=== PATIENT | female | born 1955 | race Caucasian/White ===

== ENCOUNTER 2016-11-15 16:52 | Inpatient (IN) | payer OTHER, MEDICAID ==
[~2016-11-15] VITALS: Ht 162.6 cm; Wt 45.9 kg
[2016-11-15 18:40] VITALS: RESP 26
--- NOTE | 2016-11-15 18:50 | PCM.HPMED ---
Subjective Date of Service November 15, 2016 Primary Provider: Admitting Physician: Paul Lares MD Primary Care Physician: Nickolas Chacon MD Attending Physician: Paul Lares MD Admit Status: Direct Admit, Admit to [facility] Team, Critical Care Chief Complaint: Shortness of breath, acute respiratory failure hypercarbic and hypoxic. History of Present Illness: This is a 60-year-old female who is pale for approximate 2 weeks. She seen her doctor at times and had some antibiotics and oral steroids. She has an extensive pack year history of smoking and COPD with generalized cachexia. She does not use home oxygen. She presented to the [facility] emergency department with dyspnea and was found to have a PCO2 over 100 with a pH of 7.1. She was started on BiPAP. She had modest improvement of her pH after his second gas. Request is made for transfer and she was transported without incident. She upon arrival was somewhat confused but appears to be relatively comfortable and is not in extremis. She has had a dry cough, no fevers or chills. Pulmonary infiltrates were noted and antibiotics started at [facility]. She also did have nebulizers as well as a negative sepsis screening in a glass control coma scale of 13. She does have known allergies to Dilaudid IV contrast Neurontin and penicillin. She continues to smoke only intermittently at this point. She has never been intubated per her report today. She does know where she is. She denies any chest pain or abdominal pain. Review of Systems: No headache, rhinorrhea or sore throat. No nausea or vomiting. She does have some anorexia. No pedal edema or new skin rash or lesions. Also reviewed and otherwise negative except as noted in history of present illness. Home Medications Reported medications include albuterol when necessary cyclobenzaprine when necessary Qvar twice a day, 80 g. Tramadol 50 mg when necessary duo nebs when necessary oxygen 1.5 L at night only ProAir HFA when necessary recent course of prednisone 40 daily gabapentin 300 mg 3 times a day note that this is in contrast to stated allergies alendronate 70 mg daily Motrin when necessary and Combivent 1 puff 4 times a day of these medications have been verified and records from [place] have different reports of these medications. PMH 1. COPD 2. Probable nocturnal hypoxia on home oxygen at night 3. Chronic pain syndrome 4. Insomnia 5. Remote hyperthyroidism 6. Herpes zoster 7. Possible history of colon cancer, unverified. Surgical History Appendectomy Back surgery Hysterectomy Family History Negative for COPD Social History Occupation: none Hx Alcohol Use: No Hx Substance Use: No Hx Tobacco Use: Yes Smoking Status: Current Every Day Smoker Living Arrangement: with Family Exam Exam Oriented 3. She is somewhat dyspneic with talking, has BiPAP on. She is extremely cachectic. She does seem slightly confused. Fluent speech. Normal skull. Facial wasting. Normal nose and ears. Anicteric sclera, symmetric pupils Oropharynx is unremarkable, no facial droop. Neck is supple, normal thyroid. No adenopathy. Lungs notable for 1 over 4 breath sounds with prolonged expiratory phase and wheezing. She has increased work of breathing but is recently comfortable on BiPAP. Heart is regular without murmur gallop or rub. Distant sounds. Abdomen soft, nondistended or tender. Flat Extremities are free of pedal edema. Good radial and pedal pulses. Skin is free of rash, lesions. No petechiae or ecchymosis. Joints are grossly normal. Cranial nerves are grossly normal. Motor strength is normal in all extremities. Normal muscular tone. Patient is extremely cachectic. Lab and Diagnostics Labs The urine from [facility] is negative White count 9.1 hematocrit 41, platelets 209. BNP 205. Glucose 113. Normal electrolytes. Creatinine is 0.7. Initial blood gas pH is 7.10 PCO2 140 PO2 136 EKG sinus rhythm without acute changes noted. Assessment & Plan 1. Acute hypercarbic and hypoxic respiratory failure, POA. Plan his BiPAP and treatment of COPD exacerbation and pneumonia. Repeat blood gas in approximately 60 minutes. If no improvement consider alternatives. I believe at this point she will build be treated successfully with BiPAP. 2. Community-acquired pneumonia, POA. Ceftriaxone and azithromycin. 3. COPD exacerbation, POA. IV methylprednisolone and bronchodilators. The patient is slightly confused from her hypercarbia at the time of transfer. She appears to be for resuscitation and intubation with mechanical ventilation if required. At this point we will attempt a trial of noninvasive positive pressure ventilation. We will follow her closely. Inpatient status with a 2 night length of stay anticipated. Pain Evaluation: Adequate Pain Control Resuscitation Status: CPR: Attempt Resuscitation Time spent 45 minutes of critical care time Paul Lares MD November 15, 2016 18:50
[2016-11-15] MEDS ORDERED: Alum-Mag Hydrox-Simeth 30 mL Suspension PO PRN (18:55)
[2016-11-15] MEDS ORDERED: Senna-Docusate 8.6-50 mg Tablet PO PRN (18:55)
[2016-11-15] MEDS ORDERED: Albuterol 1.25 mg/3 mL Inhalation Solution NEB PRN (18:55)
[2016-11-15] MEDS ORDERED: MethylprednisoLONE Sodium Succinate 40 mg/mL Inj IVPUSH SCH (18:55)
[2016-11-15] MEDS ORDERED: Polyethylene Glycol (PEG) 17 Gm Powder PO PRN (18:55)
[2016-11-15 19:00] VITALS: BP 117/80; PULSE 79; RESP 14; O2SAT 97
[2016-11-15] MEDS ORDERED: Azithromycin Inj 500 MG in Dextrose 5% w/Vial Mate 250 ML IV SCH (19:52)
[2016-11-15 20:05] LABS: TROPONIN T < 0.010 ug/L (0.0-0.011)
--- NOTE | 2016-11-15 20:11 | ABG ---
DateTimeAnalyzed 20:07:00 -_ pH ____7.238 - 7.350 7.450 pCO2 ___93.5__ -mmHg 35.0 45.0 pO2 ___94.3__ -mmHg 69.0 116 HCO3- ___38.5__ -mmol/L 22.0 26.0 ABE ____8.2__ -mmol/L -2.0 2.0 tHb ___11.9__ -g/dL O2Hb ___93.7__ -% COHb ____2.7__ -% MetHb ____1.3__ -% sO2 ___97.6__ -% FIO2 ___40.0__ -% Pressure_Support ___14.0__ -cmH2O CPAP ____8.0__ -cmH2O Set_RR ___20.0__ -b/min Drawn By blf - Date/Time Notified____ 20:11:00 -_ Spontaneous_RR ___24.0__ -b/min Oxygen Device 1 ____BIPAP - Notified By blf - Notified Whom Khushboo Sabattus RN -___ B 753 -mmHg tO2 ___15.8__ -Vol% Paul test N/A -
[2016-11-15] MEDS: 0.9% Sodium Chloride 1,000 ML IV SCH (20:12)
[2016-11-15 20:20] VITALS: BP 122/78; RESP 24; O2SAT 97
[2016-11-15] MEDS: Albuterol-Ipratropium 3 mL Inhalation Solution NEB SCH ×2 (20:21→23:54)
[2016-11-15] MEDS: MethylprednisoLONE Sodium Succinate 40 mg/mL Inj IVPUSH SCH (21:28)
[2016-11-15] MEDS: cefTRIAXone Inj 1,000 MG in Dextrose 5% Minibag Plus 50 ML IV SCH (21:35)
[2016-11-15 23:37] VITALS: BP 109/77; RESP 14; O2SAT 94
[2016-11-15 23:56] VITALS: BP 115/74; RESP 18; O2SAT 93
[2016-11-16] VITALS (13 sets, daily range): BP systolic 115–155; BP diastolic 66–102; PULSE 75–98; RESP 14–23; O2SAT 92–99
--- NOTE | 2016-11-16 01:05 | NUR ---
Admit Arrive from [facility] ED. A/O. Forgetful and restless. c/o CAMPBELL, generalize aching, and feet and hands burning. Denies dyspnea at rest. Mild exertional dyspnea. Denies N/V. c/o hunger and thirst. Admit completed w/ pt w/ incongruent answers. Tele SR. Stable BP. Bipap at 45%, sats 88-99%. RA sat 78%. Encouraging pt to keep bipap on.
[2016-11-16] MEDS ORDERED: ALBU8.5H2 INHALATION ×2 (02:25→09:40)
[2016-11-16] MEDS ORDERED: CYCL10TA9 PO (02:28)
[2016-11-16] MEDS ORDERED: BECL8.7A6 INHALATION (02:28)
[2016-11-16 02:44] LABS: BASOPHILS % (AUTO) 0 % (0-3); EOSINOPHILS % (AUTO) 0 % (0-5); MONOCYTES % (AUTO) 1.5 % (4-12); Mean Corpuscular Hemoglobin 29.6 pg (27.0-35.0); Mean Corpuscular Volume 96.2 fL (81-100); NEUTROPHILS % (AUTO) 88.8 % (40-74); Platelet Count 221 bil/L (150-400)
[2016-11-16] MEDS ORDERED: TRAM100C3 PO (02:50)
[2016-11-16] MEDS ORDERED: IPRA3AMP IH ×2 (02:51→09:40)
[2016-11-16] MEDS ORDERED: oxygen (03:00)
[2016-11-16] MEDS ORDERED: GABA600T2 PO (03:00)
[2016-11-16] MEDS ORDERED: GABA-502 PO (03:00)
[2016-11-16] MEDS ORDERED: ALEN70TA2 PO (03:00)
[2016-11-16] MEDS ORDERED: IPRA4AER IH ×2 (03:00→09:40)
[2016-11-16] MEDS: Albuterol-Ipratropium 3 mL Inhalation Solution NEB SCH ×6 (04:13→23:50)
[2016-11-16] MEDS: MethylprednisoLONE Sodium Succinate 40 mg/mL Inj IVPUSH SCH ×3 (04:43→20:40)
[2016-11-16] MEDS: 0.9% Sodium Chloride 1,000 ML IV SCH ×4 (04:44→22:39)
--- NOTE | 2016-11-16 06:43 | NUR ---
P: dyspnea I: NC change back to bipap E: A/O, forgetful and anxious. Pt restless, shaky, impulsive. Wanting to change from bipap mask back to NC. Use NC to get pt up to BSC and pt wanting to change back to bipap when back to bed. Increase WOB. "The machine is working". Pt now aware bipap does help her. c/o burning hands and feet which she was told part of her copd. c/o CAMPBELL. c/o generalize aching. Tylenol given x 2. Requesting gabapentin for her RLS in AM hours. Fairly wakeful and restless through night. Tele SR.
[2016-11-16] MEDS: Azithromycin Inj 500 MG in Dextrose 5% w/Vial Mate 250 ML IV SCH (09:36)
[2016-11-16] MEDS ORDERED: IBUP-1827 PO (09:40)
[2016-11-16] MEDS ORDERED: ALBU90AE IH (09:40)
[2016-11-16] MEDS ORDERED: PRE10 PO (09:40)
[2016-11-16] MEDS ORDERED: TRAZ-115 PO (09:40)
--- NOTE | 2016-11-16 09:49 | NUR ---
Med Rec: Med rec completed per provider list and patient recall of what she takes at home.
--- NOTE | 2016-11-16 13:13 | PCM.PNMED ---
Subjective Date of Service November 16, 2016 Subjective She is doing better today. She is tolerating her BiPAP. She has minimal cough. No fevers or chills. She is much less confused. No chest pain or palpitations. No nausea, vomiting or diarrhea. No overnight events Exam Vital Signs Vital Sign - Last Date Time Temp Pulse Resp B/P Pulse Ox O2 Delivery O2 Flow Rate FiO2 11/16/16 13:01 84 22 155/100 95 30 11/16/16 12:00 CPAP/BIPAP 11/16/16 12:00 36.6 11/16/16 08:00 3.00 Intake and Output 11/15/16 11/15/16 11/16/16 Cumulative From/Thru 15:00 23:00 07:00 11/15/16 19:34 - 11/16/16 06:32 Intake Total 1396 ml 1396 ml Output Total 200 ml 200 ml Balance 1196 ml 1196 ml Intake Oral 120 ml 120 ml IV Total 1276 ml 1276 ml Output Urine Total 200 ml 200 ml # Bowel Movements 0 0 Exam Alert and oriented -3, no distress. Fluent speech. She is cachectic. She is on BiPAP and appears comfortable. Anicteric sclera. Lungs are clear with normal rate and effort, she does have expiratory wheezing and prolonged expiratory phase diffusely. She also has 2 over 4 breath sounds. Heart is regular without murmur gallop or rub Abdomen soft nontender, flat Extremities are free of edema. Skin is free of rash or lesions. IVs and Medications Medications Reviewed: Medications were reviewed in detail Lab and Diagnostics Result Diagram: 11/16/16 0230 11/16/16 0230 Assessment & Plan 1. Acute hypercarbic and hypoxic respiratory failure, POA. Stable to improved. Plan is to continue BiPAP and treatment of COPD exacerbation and pneumonia. She has done well overnight on BiPAP. She will continue to be ventilated on BiPAP for the next 12-24 hours. 2. Community-acquired pneumonia, POA. Ceftriaxone and azithromycin. Improving. No change medical management. 3. COPD exacerbation, POA. Improving. Continue IV methylprednisolone and bronchodilators. 4. Septic encephalopathy, POA. This is improved with ventilation and improvement of her hypercarbia. She is full resuscitation and intubation with mechanical ventilation if required. Will continue noninvasive positive pressure ventilation. We will follow her closely. Inpatient status with a 2 night length of stay anticipated. Resuscitation Status: CPR: Attempt Resuscitation Paul Lares MD November 16, 2016 13:13
--- NOTE | 2016-11-16 13:14 | NUR ---
NUTRITION ASSESSMENT: ASSESS: Pt is a 60yo F admitted to CCU for respiratory failure. She is currently requiring BIPAP. Pt is currently NPO but plan is to hopefully advance diet today if able to tolerate off BIPAP. She has been experiencing some confusion and high anxiety. Pt is severely underwt likely related to respiratory failure. PMHX: COPD, chronic pain, HTN, possible colon ca LABS: Reviewed. Cl 96, CO2 33, Medical Clerk .50, Glu 126, Ca 8.1, Alb 3.7 MEDS: Reviewed. GI: 0 BM SKIN: no major issues CURRENT WTS: 42.3kg, BMI 16.2kg/m2, IBW 54.5kg DIET: NPO EST. NEEDS: wt gain Kcals: 1270-1480kcal/day (30-35kcal/kg) Pro: 50-65g/day (1.2-1.5g/kg IBW) NUTRITION DIAGNOSIS: 1.) Inadequate oral intake related to respiratory status as evidence by need for NPO status and need for BIPAP 2.) Severe pro/kcal malnutrition related to respiratory status as evidence by BMI of 16.2kg/m2 and history of COPD NUTRITION INTERVENTION: 1.) Recommend advance diet when medically appropriate 2.) Will discuss pt's wt and high kcal/pro diet ed when pt is more medically/mentally appropriate MONITOR / EVAL: NPO, wt, GI, labs, POC, nutrition status. Will continue to monitor per high nutrition risk guidelines.
--- NOTE | 2016-11-16 15:27 | NUR ---
Social Work- Brief Note Data: EMR reviewed. Pt is a 60 year old female admitted 11/15/16 for respiratory failure per H&P. Pt's insurance is [employer]. Pt states she has no PCP as she is no longer seeing Nickolas Chacon MD. NOK is mother Angelica [phone]. IN STORE MARKETING ASSOCIATE met pt at bedside regarding discharge plan, SW role explained. Pt resides in [facility] with her mom and boyfriend where she is independent at baseline. Pt continues to drive. Pt uses no DME at home. Pt has home O2 through [employer]. Pt is currently on BiPap. IN STORE MARKETING ASSOCIATE provided DPOA paperwork to pt at bedside, no DPOA currently designated. IN STORE MARKETING ASSOCIATE wrote phone number and plan on whiteboard. Pt anticipated to discharge home with family to transport via POV. No anticipated discharge needs at this time, SW will continue to follow. Assessment: Pt who is independent at baseline with Home O2. Plan: Pt has home O2 through [employer]. Pt is currently on BiPap. Pt anticipated to discharge home with family to transport via POV. No anticipated discharge needs at this time, SW will continue to follow. ANDREW Sharma
--- NOTE | 2016-11-16 17:09 | NUR ---
Anxiety/Resp/Activity Patient is restless and anxious most of shift. Mentally more clear this afternoon compared to this morning. Has been on bipap most of day, but did trial on NC, failed that and ended up back on bipap. End tidal CO2 was in the 50s and the IPI was 5-6, so back on bipap. Currently bipap is at 32%. Sats are 96%. Lungs are decreased and wheezy. Nebs scheduled effective. Assisted up to BSC and patient is independent turning in bed. Denies pain. Advanced to general diet, so when dinner arrives patient will be placed on NC to eat. Continuing with poc.
[2016-11-16] MEDS: Ondansetron 2 mg/mL 2 mL Inj IVPUSH PRN (18:18)
[2016-11-16] MEDS: cefTRIAXone Inj 1,000 MG in Dextrose 5% Minibag Plus 50 ML IV SCH (18:48)
[2016-11-17] VITALS (11 sets, daily range): BP systolic 126–146; BP diastolic 76–84; PULSE 79–98; RESP 16–22; O2SAT 91–99
--- NOTE | 2016-11-17 04:30 | NUR ---
P: discomfort I: gabapentin, tylenol E: More alert, oriented, shaky. c/o RLS, gabapentin helpful. c/o generalize aching requesting more gabapentin. Unable to give more gabapentin due to orders, tylenol given instead, helpful. c/o mild dyspnea at rest. Bipap at 30%, 16/8. Sats trend down to low 80s, pt asleep. Tital Vol in the 160s. Increase fi02 to 40% and 18/8. Pt sats increase to 93%. At midnight pt sat EOB, increase WOB, accessory muscles, purse lip breathing w/ prolong exp wanting to remove bipap and go back to NC. Pt back to sleep and maintaining sats in the 90s on 1L NC through night. Harsh congested cough. Uses yankaur to clear phlegm, white/cream/thick. Tele SR. Stable BP.
[2016-11-17] MEDS: MethylprednisoLONE Sodium Succinate 40 mg/mL Inj IVPUSH SCH ×3 (04:59→21:14)
[2016-11-17] MEDS: Albuterol-Ipratropium 3 mL Inhalation Solution NEB SCH ×5 (05:06→20:02)
[2016-11-17] MEDS: 0.9% Sodium Chloride 1,000 ML IV SCH (06:37)
[2016-11-17] MEDS: Azithromycin Inj 500 MG in Dextrose 5% w/Vial Mate 250 ML IV SCH (08:16)
--- NOTE | 2016-11-17 08:17 | PCM.PNMED ---
Subjective Date of Service November 17, 2016 Subjective Patient's very much better today. She has been off BiPAP for several hours and is not feeling distress. She denies confusion. She does have a dry cough. She denies any nausea. No chest pain. She does have some lower back pain. Good appetite. No overnight events. Exam Vital Signs Vital Sign - Last Date Time Temp Pulse Resp B/P Pulse Ox O2 Delivery O2 Flow Rate FiO2 11/17/16 08:03 Supplement Oxygen 11/17/16 08:01 82 19 142/81 94 2.00 11/17/16 04:30 36.7 11/16/16 23:50 40 Intake and Output 11/16/16 11/16/16 11/17/16 Cumulative From/Thru 15:00 23:00 07:00 11/15/16 19:34 - 11/17/16 06:27 Intake Total 1325 ml 600 ml 3321 ml Output Total 300 ml 450 ml 350 ml 1300 ml Balance -300 ml 875 ml 250 ml 2021 ml Intake Oral 600 ml 720 ml IV Total 1325 ml 2601 ml Output Urine Total 300 ml 450 ml 350 ml 1300 ml # Bowel Movements 2 0 2 Exam Alert and oriented -3, no distress. Fluent speech with minimal dyspnea. 2 over 4 breath sounds with prolonged expiratory phase but overall improved. Anicteric sclera. Lungs are clear with normal rate and effort Heart is regular without murmur gallop or rub Abdomen soft nontender, flat Extremities are free of edema. Skin is free of rash or lesions. Multiple Tattoos IVs and Medications Medications Reviewed: Medications were reviewed in detail Lab and Diagnostics Result Diagram: 11/16/16 02311/16/16 0230 Assessment & Plan 1. Acute hypercarbic and hypoxic respiratory failure, POA. Much improved. She will be transferred out of CCU today. We will follow her carefully and clinically decide if she needs more BiPAP support not. 2. Community-acquired pneumonia, POA. Ceftriaxone and azithromycin. Much improved. No change medical management. 3. COPD exacerbation, POA. Improving. Continue IV methylprednisolone and bronchodilators. 4. Septic encephalopathy, POA. This is poorly resolved. She is full resuscitation and intubation with mechanical ventilation if required. Will continue noninvasive positive pressure ventilation. We will follow her closely. Inpatient status with a 2 night length of stay anticipated. Believe that she will likely discharge in 5 years Monday if she continues to improve. Resuscitation Status: CPR: Attempt Resuscitation Paul Lares MD November 17, 2016 08:17
[2016-11-17] MEDS: Ondansetron 2 mg/mL 2 mL Inj IVPUSH PRN (09:27)
--- NOTE | 2016-11-17 12:36 | NUR ---
PCC status Pt changed to PCC status. Report received from Lilibeth Saucedo RN. Pt alert in bed. Switched patient to telemetry box, tech notified. Pt is on oxymask at 2L. Sats to be maintained 90-92%. Pt is SL. Pt care continues.
--- NOTE | 2016-11-17 15:08 | NUR ---
NUTRITION FOLLOW-UP: ASSESS: Pt is a 60yo F admitted to CCU for respiratory failure. She has been doing well and was able to have diet advanced to general. Pt reported that she has a good appetite at home and has been trying to gain wt. She has been drinking 1 Ensure/day with breakfast. PO on general diet has been fair at 50% x1 meal. PMHX: COPD, chronic pain, HTN, possible colon ca LABS: Reviewed. (11/16)Cl 96, CO2 33, Airline Reservation Agent .50, Glu 126, Ca 8.1, Alb 3.7 MEDS: Reviewed. GI: BMx2 11/16 SKIN: no major issues. Pt appears very thin and some visible muscle/fat loss CURRENT WTS: 44.7kg, BMI 16.9kg/m2, IBW 54.5kg DIET: General, PO 50%x1 meal EST. NEEDS: wt gain Kcals: 1270-1480kcal/day (30-35kcal/kg) Pro: 50-65g/day (1.2-1.5g/kg IBW) NUTRITION DIAGNOSIS: 1.) Inadequate oral intake related to respiratory status as evidence by need for NPO status and need for BIPAP--IMPROVING 2.) Moderate pro/kcal malnutrition related to respiratory status as evidence by BMI of 16.2kg/m2 and history of COPD, visible muscle/fat loss--PERSISTS NUTRITION INTERVENTION: 1.) Continue current diet. Encouraged PO intake. Discussed pts wt and the importance of getting enough kcal/pro so that she does not lose any more wt. Discussed eating higher kcal/pro foods (cottage cheese, whole milk, nut butters) and discussed drinking 2-3 Ensure/day instead of just 1. Provided high kcal/pro nutrition handout and recipe book 2.) Will add Chocolate Ensure on breakfast and dinner trays per pt preference. MONITOR / EVAL: PO, wt, GI, labs, POC, nutrition status. Will continue to monitor per moderate nutrition risk guidelines.
--- NOTE | 2016-11-17 15:43 | NUR ---
Social Work: Readiness for Discharge D: Pt discussed in am rounds. pt is not medically stable for discharge at this time but is anticipated to be ready in 1-2 days. Per MD, pt may benefit from home health at time of discharge for RN and PT. COMPLETION ENGINEER met with pt at bedside to discuss discharge planning and HH recommendation. HH CHOICE LIST PROVIDED to pt. Pt does not have a preference for HH companies- referral made to [facility] based on vendor calendar. Pt expresses no other concerns or needs about discharge. t/c to Khushboo with [facility] to provided referral; DIRECTOR BIOSTATISTICS to fax clinicals. Pt is Coordinated Care with [facility]; Khushboo is running pt's insurance for coverage. A: Pt who is I at baseline. P: Anticipate pt to discharge home via POV with [facility] for RN, PT pending approval from insurance. ANDREW Martin
--- NOTE | 2016-11-17 17:31 | NUR ---
Respiratory Patient on 2L NC. Sats 89-92%. Pt has productive cough, and uses yankaur to suction out secretions. Pt desats to mid 80s when coughing but recovers back to low 90's. Placed pt on 3L oxymask to get up to BSC. Sats maintained 88-92.
[2016-11-17] MEDS: cefTRIAXone Inj 1,000 MG in Dextrose 5% Minibag Plus 50 ML IV SCH (19:47)
[2016-11-18] VITALS (14 sets, daily range): BP systolic 124–150; BP diastolic 78–91; PULSE 66–95; RESP 16–22; O2SAT 89–98
[2016-11-18] MEDS: Albuterol-Ipratropium 3 mL Inhalation Solution NEB SCH ×6 (00:30→20:18)
[2016-11-18] MEDS: MethylprednisoLONE Sodium Succinate 40 mg/mL Inj IVPUSH SCH ×2 (04:41→11:35)
--- NOTE | 2016-11-18 04:44 | NUR ---
02sat Pt alert and oriented x3. Able to express needs and wants. No c/o pain/discomfort. Desaturations to low 80s noted last night while sleeping and during activity. Pt takes some times to recover. Increased 02 to 4L NC. Pt prefers not to wear Bipap as much as possible tonight. Pt noted to be sustaining in mid 90s on 4L. Decreased 02sat down to 2L NC with 02sat in mid 90s at this time.
[2016-11-18] MEDS: Azithromycin Inj 500 MG in Dextrose 5% w/Vial Mate 250 ML IV SCH (08:10)
--- NOTE | 2016-11-18 12:24 | NUR ---
Faxed clinicals and referral to [facility] per SUPERVISOR MARBLE
--- NOTE | 2016-11-18 12:28 | PCM.PNMED ---
Subjective Date of Service November 18, 2016 Subjective Pt continues to note improvement in breathing effort, much improved over 24 hours though not yet back to baseline. She also notes increasingly productive cough, yellowish mucous, she feels may be helping to clear airways. Denies fever /chills. Appetite is good, no nausea/vomiting. Exam Vital Signs Vital Sign - Last Date Time Temp Pulse Resp B/P Pulse Ox O2 Delivery O2 Flow Rate FiO2 11/18/16 09:53 Supplement Oxygen 11/18/16 09:36 72 20 95 4.00 11/18/16 08:00 36.8 146/80 11/16/16 23:50 40 Intake and Output 11/17/16 11/17/16 11/18/16 Cumulative From/Thru 15:00 23:00 07:00 11/15/16 19:34 - 11/18/16 06:14 Intake Total 246 ml 1200 ml 935 ml 5702 ml Output Total 650 ml 800 ml 2750 ml Balance 246 ml 550 ml 135 ml 2952 ml Intake Oral 240 ml 935 ml 1895 ml IV Total 246 ml 960 ml 3807 ml Output Urine Total 650 ml 800 ml 2750 ml # Bowel Movements 2 General: Alert, Oriented X3, Cooperative, Mild Distress Mouth: Mucous Membr Moist/[place] Chest & Lungs: Coarse breath sounds, Expiratory wheezes, Other (Good airflow in all lung smith with expiratory wheezing difusely. ) Cardiovascular: Regular Rate/Rhythm Extremities: No cyanosis/clubbing/edma bilat Neurological: Grossly Neurologically Intact IVs and Medications Medications Reviewed: Medications were reviewed in detail Lab and Diagnostics Result Diagram: 11/16/16 0230 11/16/16 0230 Assessment & Plan 1. Acute hypercarbic and hypoxic respiratory failure, POA. Much improved. She will be transferred out of CCU today. We will follow her carefully and clinically decide if she needs more BiPAP support not, though currently wheezing supplement O2 successfully, anticipate this condition is resolved. 2. Community-acquired pneumonia, POA. Ceftriaxone and azithromycin. Much improved. No change medical management. Plan to transition to PO antibiotics on discharge in 1-2 days. 3. COPD exacerbation, POA. Improving. Transition to oral steroid therapy, Prednisone 60mg PO daily starting tomorrow, anitcipate further taper as breathing function improves. 4. Septic encephalopathy, POA. This is currently resolved. She is full resuscitation and intubation with mechanical ventilation if required , [facility] currently condition improving. . Inpatient status with a 2 night length of stay anticipated. Believe that she will likely discharged Monday or monday if she continues to improve. Pain Evaluation: Adequate Pain Control Resuscitation Status: CPR: Attempt Resuscitation Time spent 25 minutes Yung Cuenca DO November 18, 2016 12:28
--- NOTE | 2016-11-18 18:16 | NUR ---
O2 The pt remained on 2-4L NC throughout the shift to keep sats between 88-92%. The pt continues with a productive cough and uses the yankar to suction independently. The pt is independent to the BSC, and has IVF's running at [facility].
[2016-11-18] MEDS: cefTRIAXone Inj 1,000 MG in Dextrose 5% Minibag Plus 50 ML IV SCH (18:31)
[2016-11-18] MEDS: predniSONE 20 mg Tablet PO SCH (19:33)
[2016-11-19] MEDS: Albuterol-Ipratropium 3 mL Inhalation Solution NEB SCH ×3 (00:30→08:00)
[2016-11-19 03:15] LABS: BASOPHILS % (AUTO) 0 % (0-3); EOSINOPHILS % (AUTO) 0 % (0-5); MONOCYTES % (AUTO) 3.8 % (4-12); Mean Corpuscular Hemoglobin 29.5 pg (27.0-35.0); NEUTROPHILS % (AUTO) 91.8 % (40-74); Platelet Count 226 bil/L (150-400)
[2016-11-19 04:25] VITALS: BP 157/96; PULSE 78; RESP 28; O2SAT 92
--- NOTE | 2016-11-19 04:39 | NUR ---
Oxygen Pt on 3L NC at beginning of shift. desats with activity to low 80's. recovers after 3-5 minutes of rest. While sleeping, pt noted to desat into high 70's on the 3L. New pulse ox probe placed as well as oxymask at 4L. Pt returned sats to mid 90's, once recovered, O2 decreased to 3L oxymask, sats 94% at this time.
[2016-11-19 05:29] VITALS: PULSE 92
[2016-11-19 07:42] VITALS: BP 167/96; PULSE 74; RESP 22; O2SAT 92
[2016-11-19] MEDS: Azithromycin Inj 500 MG in Dextrose 5% w/Vial Mate 250 ML IV SCH (07:46)
[2016-11-19] MEDS: predniSONE 20 mg Tablet PO SCH (07:46)
[2016-11-19 08:00] VITALS: PULSE 65
[2016-11-19 08:01] VITALS: PULSE 86; RESP 20; O2SAT 94
--- NOTE | 2016-11-19 08:11 | PCM.DC.MED ---
Discharge Summary Date of Service November 19, 2016 Dates of Hospitalization Date of Hospital Admission November 15, 2016 at 18:34 Date of Discharge: November 19, 2016 Providers: Admitting Physician: Paul Lares MD Primary Care Physician: Nickolas Chacon MD Attending Physician: Paul Lares MD Diagnosis at Time of Discharge Diagnosis at Time of Discharge 1. COPD exacerbation 2. Community acquired pneumonia 3. Neuropathic pain Brief History As per admission history of present illness by Dr. Jules Lares "This is a 60- year-old female who is pale for approximate 2 weeks. She seen her doctor at times and had some antibiotics and oral steroids. She has an extensive pack year history of smoking and COPD with generalized cachexia. She does not use home oxygen. She presented to the [facility] with dyspnea and was found to have a PCO2 over 100 with a pH of 7.1. She was started on BiPAP. She had modest improvement of her pH after his second gas. Request is made for transfer and she was transported without incident. She upon arrival was somewhat confused but appears to be relatively comfortable and is not in extremis. She has had a dry cough, no fevers or chills. Pulmonary infiltrates were noted and antibiotics started at [facility]. She also did have nebulizers as well as a negative sepsis screening in a glass control coma scale of 13. She does have known allergies to Dilaudid IV contrast Neurontin and penicillin. She continues to smoke only intermittently at this point. She has never been intubated per her report today. She does know where she is. She denies any chest pain or abdominal pain." Hospital Course 1. Acute hypercarbic and hypoxic respiratory failure, POA. Much improved, nearly returned to baseline. Now stable on 2 L nasal cannula, she did have some desaturations overnight due to mouth breathing is responded well to facemask. I anticipate some of this may be present at home as well but is not being detected as she is not under as close surveillance. Close follow-up with primary care physician however she is certainly in stable respiratory condition at this time and stable for discharge. 2. Community-acquired pneumonia, POA. Ceftriaxone and azithromycin continued through hospitalization. Given recent treatment failure azithromycin we will initiate Levaquin (pt has PCN allergy) on discharge to complete antibiotic course, 3 days remaining to complete course. 3. COPD exacerbation, POA. Improving. Transitioned to oral steroid therapy yesterday following 2 day course of Solu-Medrol, Prednisone 40 mg continue for 5 additional days on discharge. 4. Septic encephalopathy, POA. This is currently resolved. 5. Neuropathic pain: Titrate Neurontin to 600mg PO TID due to severe symptoms. Continue to monitor FU with PCp for further evaluation. Exam Vital Signs (Last) Date Time Temp Pulse Resp B/P Pulse Ox O2 Delivery O2 Flow Rate FiO2 11/19/16 08:01 86 20 94 Nasal Cannula 3.00 11/19/16 07:42 37.0 167/96 11/16/16 23:50 40 Exam General: Alert, Oriented X3, Cooperative, Mild Distress Mouth: Mucous Membrane Moist/[place]on Chest & Lungs: Clear to auscultation bilaterally , improving expiratory wheezes, mild in severity, with good airflow in all lung smith. Cardiovascular: Regular Rate/Rhythm Extremities: No cyanosis/clubbing/edema bilaterally Neurological: Grossly Neurologically Intact Test 11/15/16 19:26 11/16/16 02:30 11/19/16 02:44 Lactic Acid Level 0.6mmol/L (0.4-2.0) Troponin T < 0.010ug/L (0.0-0.011) Procalcitonin 0.05ng/mL (0.00-0.08) Total Bilirubin 0.2mg/dL (0.0-1.2) Aspartate Amino Transf (AST/SGOT) 21U/L (0-50) Alanine Aminotransferase (ALT/SGPT) 20U/L (0-32) Alkaline Phosphatase 45U/L (25-150) Total Protein 5.8g/dL (6.4-8.4) Albumin 3.7g/dL (3.4-5.0) White Blood Count 8.5th/mm3 (3.8-10.1) Red Blood Count 4.30mil/mm3 (3.90-5.20) Hemoglobin 12.7g/dL (12.0-15.6) Hematocrit 40.0% (35.0-46.0) Mean Corpuscular Volume 93.0fL (81-100) Mean Corpuscular Hemoglobin 29.5pg (27.0-35.0) Mean Corpuscular Hemoglobin Concent 31.8% (32.0-37.0) Red Cell Distribution Width 17.5% (12.3-15.4) Platelet Count 226bil/L (150-400) Neutrophils (%) (Auto) 91.8% (40-74) Lymphocytes (%) (Auto) 4.3% (14-46) Monocytes (%) (Auto) 3.8% (4-12) Eosinophils (%) (Auto) 0% (0-5) Basophils (%) (Auto) 0% (0-3) Sodium Level 142mEq/L (134-144) Potassium Level 4.6mEq/L (3.5-5.2) Chloride Level 99mEq/L (97-108) Carbon Dioxide Level 37mmol/L (18-29) Blood Urea Nitrogen 22mg/dL (6-24) Creatinine 0.62mg/dL (0.57-1.00) Estimat Glomerular Filtration Rate 142mL/min (>59) Glucose Level 140mg/dL (60-99) Calcium Level 8.7mg/dL (8.5-10.1) Discharge Medications Discharge Medications Albuterol/Ipratropium (Combivent Respimat Inhal [place]) 120 Spr/4 Gm Inhaler 1 PUFF IH QID (Reported) Beclomethasone Dipropionate (Qvar) 8.7 Gm Aer.w.adap 1 PUFF INHALATION BID ( Reported) Gabapentin (Gabapentin) 300 Mg Capsule 600 MG PO TID Prescribed by: TRACY DOWELL DO Ipratropium/Albuterol Sulfate (Iprat-Albut 0.5-3(2.5) mg/3 mL Inhalant Soln) 3 Ml Ampul.neb 3 ML IH Q6 (Reported) Levofloxacin (Levaquin) 750 Mg Tablet 750 MG PO DAILY Prescribed by: TRACY DOWELL DO Prednisone (Deltasone) 20 Mg Tablet 40 MG PO DAILY Prescribed by: TRACY DOWELL DO Trazodone (Trazodone) 50 Mg Tablet 50 MG PO HS (Reported) As needed Albuterol HFA (Proair HFA) 8.5 Gm Hfa.aer.ad 1-2 PUFFS INHALATION Q4H PRN PRN For Wheezing (Reported) Cyclobenzaprine (Cyclobenzaprine) 10 Mg Tablet 10 MG PO TID PRN PRN Spasm ( Reported) Ibuprofen (Ibuprofen) 600 Mg Tablet 600 MG PO TID PRN PRN For Pain (Reported) Tramadol HCl (Tramadol HCl ER) 100 Mg Cpbp.25.75 50-100 MG PO PRN For Pain ( Reported) max of 6 tabs a day Miscellaneous Medications ([oxygen]) 1.5 L (Reported) nights Followup Plan Disposition: Discharged home in stable condition, plan for follow-up with PCP in 2-3 days following discharge. Discharge Diet: No restrictions Discharge Activity: Limited until seen by PCP Follow-up with PCP in: 1 week Time spent 45 minutes copies to: NICKOLAS CHACON MD, Benjamin P DO November 19, 2016 08:10
[2016-11-19] MEDS ORDERED: PRED-508 PO (08:18)
[2016-11-19] MEDS ORDERED: LEVO750T9 PO (08:18)
[2016-11-19] MEDS ORDERED: GABA-502 PO (08:18)
--- NOTE | 2016-11-19 08:19 | PCM.DIMED ---
Discharge Instructions Date of Service November 19, 2016 Dates of Hospitalization November 15, 2016 at 18:34 Discharge Diagnosis Discharge Diagnosis 1. COPD exacerbation 2. Community acquired pneumonia 3. Neuropathic pain Diet No restrictions Activity Limited until seen by PCP Call your provider Fever or Chills, Shortness of breath, Chest pain Patient Instructions Follow-up Provider: BETHANIE LINDSEY MD Follow-up with PCP in: 1 week Yung Cuenca DO November 19, 2016 08:19
--- NOTE | 2016-11-19 10:18 | NUR ---
Social Work: Discharge D: Pt discussed in am rounds with MD. Pt is medically stable for discharge home. Pt does not have transportation as family is busy with an ailing family member- MD provided verbal order to assist pt with transportation arrangements. HEAD OF RESEARCH & INSIGHTS met with pt at bedside to discuss discharge planning. Pt no longer wishes to have home health as she states she is feeling much stronger and does not need teaching on her respiratory status from a nurse. Pt also states that she is not homebound and can follow up with her PCP if her clinical status changes after discharge. Pt confirms that she has called all friends and family and they cannot provide transportation. Pt states that she has home 02 through [facility] and will need a tank to use during transportation. HEAD OF RESEARCH & INSIGHTS spoke with [facility] who will provide the pt a [employer] tank for transportation home. Pt arrived via EMS and has a [facility] transportation. HEAD OF RESEARCH & INSIGHTS spoke with [employer] who confirms that the patient has a transportation benefits and they can pick her up at 11:30. Pt, MD, RT and bedside RN notified. A: Pt who lives at home with family and declining home health. P: Pt to discharge home via [facility] transportation at 11:30 and no further SW needs at this time. ANDREW Martin
--- NOTE | 2016-11-19 11:29 | NUR ---
Discharge The pt left the unit via wheelchair at 1130 with all her personal belongings and her packet of discharge info - including all paperwork and new scripts. The pt verbalized understanding of all discharge teaching. The pt left on 2L NC to a yellow cab where she will be transported home. The pt left the unit A&Ox3 with all vitals [facility] for the pt.
== END 2016-11-19 11:29 | disposition home or self-care (01) | DRG 189 ==
LOC: CCU 18:34 → PCC 11-17 08:15
PROVIDERS: ADMIT Hospitalist; ATTEND Hospitalist
PROC: 4A033B1 Measurement of Arterial Pressure, Peripheral, Percutaneous Approach (ICD-10-PCS; 2016-11-15)
PROC: 5A09457 Assistance with Respiratory Ventilation, 24-96 Consecutive Hours, Continuous Positive Airway Pressure (ICD-10-PCS; principal; 2016-11-16)
DX: J96.02 Acute respiratory failure with hypercapnia (principal); G93.41 Metabolic encephalopathy; R64 Cachexia; J18.9 Pneumonia, unspecified organism; J44.1 Chronic obstructive pulmonary disease with (acute) exacerbation; Z68.1 Body mass index [BMI] 19.9 or less, adult; J96.01 Acute respiratory failure with hypoxia; F17.210 Nicotine dependence, cigarettes, uncomplicated; G62.9 Polyneuropathy, unspecified